=== PATIENT | male | born 1990 | race Two or more races ===

== ENCOUNTER 2019-06-24 00:49 | Emergency (ER) | payer MEDICAID ==
[~2019-06-24] VITALS: Ht 177.8 cm; Wt 77.0 kg
[2019-06-24 02:02] VITALS: BP 129/74
[2019-06-24] MEDS ORDERED: ACETAMINOPHEN 325MG TABLET PO ONE (02:30)
[2019-06-24 03:28] LABS: CHLORIDE 110 mEq/L (98-107)
[2019-06-24 03:31] LABS: ETHANOL BLOOD < 10 mg/dL
[2019-06-24 03:48] LABS: BASOPHILS % 0.6 % (0.0-2.0); EOSINOPHILS % 0.5 % (0.0-5.0); HEMOGLOBIN. 15.6 g/dL (14.0-18.0); LYMPHOCYTES % 19.7 % (20.0-50.0); MEAN CORPUSCULAR HEMOGLOBIN 33.9 pg (28.0-32.0); MEAN CORPUSCULAR VOLUME 95.7 fL (80.0-94.0); MEAN PLATELET VOLUME 8.4 fl (7.4-10.4); NEUTROPHILS % 74.2 % (40.0-76.0); PLATELET 199 x1000/uL (130-400); RED CELL DISTRIBUTION WIDTH 12.3 % (11.6-14.6)
== END 2019-06-24 03:54 | disposition left against medical advice (07) ==
LOC: ER 00:49
DX: J06.9 Acute upper respiratory infection, unspecified (principal)
CPT/HCPCS: 36415; 80053; 80320; 85025; 99283; G0480